=== PATIENT | male | born 1975 | race Caucasian/White ===

== ENCOUNTER 2021-09-10 14:26 | Emergency (ER) | payer SELFPAY ==
[~2021-09-10] VITALS: Ht 165 cm; Wt 95.0 kg
--- NOTE | 2021-09-10 14:35 | ED Abdominal Pain ---
General Stated Complaint: LRQ PAIN; N/V/; FEVER History of Present Illness Date Seen by Provider: Sep 10, 2021 Time Seen by Provider: 14:30 Initial Comments 45-year-old male presents with right flank pain and time with diffuse right abdominal pain. Started this morning. He does have some dark urine. Reports when he ate this morning he vomited everything up. Reports that the urine got dark this morning. He denies any fever. No diarrhea or constipation. No dysuria. Allergies and Home Medications Allergies Coded Allergies: No Known Drug Allergies (Unverified , 09/10/21) Patient Home Medication List Home Medication List Reviewed: Yes Review of Systems Review of Systems Constitutional: No chills, No fever Respiratory: No Symptoms Reported Cardiovascular: No Symptoms Reported Gastrointestinal: See HPI, Abdominal Pain; Denies Constipated, Denies Diarrhea; Nausea, Vomiting Genitourinary: See HPI, Flank Pain Musculoskeletal: no symptoms reported Skin: no symptoms reported Psychiatric/Neurological: No Symptoms Reported Endocrine: No Symptoms Reported Hematologic/Lymphatic: No Symptoms Reported Physical Exam Vital Signs Vital Signs - First Documented 09/10/21 14:50 Temp 36.1 Pulse 78 Resp 16 B/P (MAP) 199/104 (135) Pulse Ox 98 O2 Delivery Room Air Capillary Refill : Height/Weight/BMI Height: '" Weight: lbs. oz. kg; BMI Method: General Appearance: WD/WN, no apparent distress Neck: supple, normal inspection Respiratory: lungs clear, normal breath sounds Cardiovascular: normal peripheral pulses, regular rate, rhythm Gastrointestinal: soft, tenderness (Mild tenderness right mid and right lower quadrant) Back: CVA tenderness (R) Neurologic/Psychiatric: alert, normal mood/affect, oriented x 3 Skin: normal color, warm/dry Progress/Results/Core Measures Results/Orders Lab Results Laboratory Tests Test 09/10/21 14:34 Range/Units White Blood Count 6.7 4.3-11.0 10^3/uL Red Blood Count 4.88 4.30-5.52 10^6/uL Hemoglobin 14.8 13.3-17.7 g/dL Hematocrit 43 40-54 % Mean Corpuscular Volume 87 80-99 fL Mean Corpuscular Hemoglobin 30 25-34 pg Mean Corpuscular Hemoglobin Concent 35 32-36 g/dL Red Cell Distribution Width 13.4 10.0-14.5 % Platelet Count 237 130-400 10^3/uL Mean Platelet Volume 11.1 9.0-12.2 fL Neutrophils (%) (Auto) 63 42-75 % Lymphocytes (%) (Auto) 28 12-44 % Monocytes (%) (Auto) 7 0-12 % Eosinophils (%) (Auto) 2 0-10 % Basophils (%) (Auto) 0 0-10 % Neutrophils # (Auto) 4.2 1.8-7.8 X 10^3 Lymphocytes # (Auto) 1.9 1.0-4.0 X 10^3 Monocytes # (Auto) 0.5 0.0-1.0 X 10^3 Eosinophils # (Auto) 0.1 0.0-0.3 10^3/uL Basophils # (Auto) 0.0 0.0-0.1 10^3/uL Urine Color BROWN H Urine Clarity CLOUDY Urine pH 5.5 5-9 Urine Specific [place] >=1.030 1.016-1.022 Urine Protein 2+ H NEGATIVE Urine Glucose (UA) NEGATIVE NEGATIVE Urine Ketones TRACE H NEGATIVE Urine Nitrite NEGATIVE NEGATIVE Urine Bilirubin 1+ H NEGATIVE Urine Urobilinogen 0.2 < = 1.0 MG/DL Urine Leukocyte Esterase NEGATIVE NEGATIVE Urine RBC (Auto) 3+ H NEGATIVE Urine RBC >100 H /HPF Urine WBC RARE /HPF Urine Squamous Epithelial Cells NONE /HPF Urine Crystals NONE /LPF Urine Bacteria TRACE /HPF Urine Casts NONE /LPF Urine Mucus SMALL H /LPF Urine Culture Indicated NO Sodium Level 138 135-145 MMOL/L Potassium Level 3.8 3.6-5.0 MMOL/L Chloride Level 103 98-107 MMOL/L Carbon Dioxide Level 25 21-32 MMOL/L Anion Gap 10 5-14 MMOL/L Blood Urea Nitrogen 12 7-18 MG/DL Creatinine 0.92 0.60-1.30 MG/DL Estimat Glomerular Filtration Rate 104 BUN/Creatinine Ratio 13 Glucose Level 157 H 70-105 MG/DL Calcium Level 9.2 8.5-10.1 MG/DL Corrected Calcium 8.5-10.1 MG/DL Total Bilirubin 0.5 0.1-1.0 MG/DL Aspartate Amino Transf (AST/SGOT) 27 5-34 U/L Alanine Aminotransferase (ALT/SGPT) 35 0-55 U/L Alkaline Phosphatase 56 40-136 U/L C-Reactive Protein < 0.30 <0.50 MG/DL Total Protein 7.1 6.4-8.2 GM/DL Albumin 5.0 H 3.2-4.5 GM/DL My Orders Orders - JOSE SINVOR L DO Cbc With Automated Diff (09/10/21 14:37) Comprehensive Metabolic Panel (09/10/21 14:37) Ua Culture If Indicated (09/10/21 14:37) Crp Fs (09/10/21 14:37) Abdomen (Kub) 1 View (09/10/21 14:37) Ketorolac Injection (Toradol Injection) (09/10/21 14:37) Ondansetron Injection (Zofran Injectio (09/10/21 14:45) Ns Iv 1000 Ml (Sodium Chloride 0.9%) (09/10/21 14:37) Ct Abdomen/Pelvis Wo (09/10/21 15:13) Medications Given in ED Current Medications Medications Dose Ordered Sig/Senthil Route Start Time Stop Time Status Last Admin Dose Admin Ondansetron HCl 4 mg ONCE ONCE IVP 09/10/21 14:45 09/10/21 14:46 DC 09/10/21 14:45 4 MG Vital Signs/I&O 09/10/21 14:50 Temp 36.1 Pulse 78 Resp 16 B/P (MAP) 199/104 (135) Pulse Ox 98 O2 Delivery Room Air Diagnostic Imaging Diagonstic Imaging: CT Plain Films/CT/US/NM/MRI: abdomen, pelvis Comments Date of Exam:09/10/21 CT ABDOMEN/PELVIS WO PROCEDURE: CT abdomen and pelvis without contrast. TECHNIQUE: Multiple contiguous axial images were obtained through the abdomen and pelvis without the use of intravenous contrast. Auto Exposure Controls were utilized during the CT exam to meet ALARA standards for radiation dose reduction. INDICATION: Abdominal pain and hematuria. FINDINGS: Unenhanced images of liver and spleen reveal no focal abnormalities. Gallbladder is surgically absent. There is no evidence of pancreatic or adrenal gland abnormality. There are several nonobstructing stones centrally in the left kidney. There are additional circumscribed low-density foci in the right kidney which likely represent cysts. There is mild dilatation of right renal collecting system and ureter to the level of an approximately 0.4 cm calculus in the mid ureteric level. There is mild edema and/or inflammation surrounding the right ureter as well. Bladder is unremarkable. There is no evidence of free fluid in the abdomen or pelvis. There is localized L5-S1 degenerative disc disease. IMPRESSION: At least partially obstructing 0.4 cm calculus at the mid right ureter. Additional nonobstructing calculi are seen in the left kidney and bilateral renal cysts are present. Reviewed: Reviewed by Me, Reviewed/Discussed Departure Impression Primary Impression: Kidney stone on right side Disposition: HOME, SELF-CARE Condition: Stable Departure-Patient Inst. Referrals: NO,LOCAL PHYSICIAN (PCP/Family) Primary Care Physician Patient Instructions: Kidney Stone, Adult ED, Kidney Stone Diet Add. Discharge Instructions: Follow-up with your primary care provider next Tuesday or Tuesday for recheck of your symptoms Return to the ER if symptoms worsen Scripts Ondansetron (Ondansetron Odt) 4 Mg Tab.rapdis 4 MG PO Q6H PRN for NAUSEA/VOMITING, #20 TAB 0 Refills Prov: PABLO SIN DO 09/10/21 Tamsulosin HCl (Flomax) 0.4 Mg Cap 0.4 MG PO DAILY for 14 Days, #14 CAP Prov: PABLO SIN DO 09/10/21 PABLO SIN DO Sep 10, 2021 14:35
[2021-09-10] MEDS ORDERED: NS IV 1000 ML 1,000 ML IV STA (14:37)
[2021-09-10] MEDS ORDERED: KETOROLAC 30 MG/ML VIAL IVP STA (14:37)
[2021-09-10] MEDS ORDERED: ONDANSETRON 4 MG/2 ML (SDV) Z0FRAN IVP ONE (14:45)
[2021-09-10 14:51] LABS: HEMATOCRIT 43 % (40-54); HEMOGLOBIN 14.8 g/dL (13.3-17.7); MEAN CORPUSCULAR HEMOGLOBIN 30 pg (25-34); MEAN CORPUSCULAR HGB CONC 35 g/dL (32-36); MEAN CORPUSCULAR VOLUME 87 fL (80-99); PLATELET COUNT 237 10^3/uL (130-400); WHITE BLOOD COUNT 6.7 10^3/uL (4.3-11.0)
[2021-09-10 14:52] LABS: BASOPHILS % (AUTO) 0 % (0-10); EOSINOPHILS % (AUTO) 2 % (0-10); LYMPHOCYTES # (AUTO) 1.9 X 10^3 (1.0-4.0); LYMPHOCYTES % (AUTO) 28 % (12-44); MEAN PLATELET VOLUME 11.1 fL (9.0-12.2); MONOCYTES # (AUTO) 0.5 X 10^3 (0.0-1.0); MONOCYTES % (AUTO) 7 % (0-12); NEUTROPHILS # (AUTO) 4.2 X 10^3 (1.8-7.8); NEUTROPHILS % (AUTO) 63 % (42-75)
[2021-09-10 14:53] LABS: EOSINOPHILS # (AUTO) 0.1 10^3/uL (0.0-0.3)
--- NOTE | 2021-09-10 14:53 | Diagnostic Imaging Report ---
INDICATION: Right-sided abdominal pain and right flank pain. TIME OF EXAM: 2:46 PM. COMPARISON: No prior studies are available for comparison. FINDINGS: There are surgical clips in the gallbladder fossa. The bowel gas pattern is nonobstructed. No pathologic calcifications are identified. IMPRESSION: No acute abnormality is detected. Dictated by: Dictated on workstation # [id number]
[2021-09-10 15:01] LABS: CLARITY,URINE CLOUDY; COLOR,URINE BROWN; GLUCOSE, URINE (UA) NEGATIVE (NEGATIVE); KETONES,URINE TRACE (NEGATIVE); LEUKOCYTE ESTERASE ,URINE NEGATIVE (NEGATIVE); NITRITE,URINE NEGATIVE (NEGATIVE); PH,URINE 5.5 (5-9); PROTEIN,URINE 2+ (NEGATIVE)
[2021-09-10 15:05] LABS: BACTERIA,URINE TRACE /HPF; BILIRUBIN,URINE 1+ (NEGATIVE); RBC,URINE >100 /HPF; WBC,URINE RARE /HPF
[2021-09-10 15:06] LABS: ALANINE AMINOTRANSFERASE 35 U/L (0-55); ALKALINE PHOSPHATASE 56 U/L (40-136); BILIRUBIN,TOTAL 0.5 MG/DL (0.1-1.0); BUN/CREATININE RATIO 13; CALCIUM 9.2 MG/DL (8.5-10.1); CARBON DIOXIDE 25 MMOL/L (21-32); CHLORIDE 103 MMOL/L (98-107); CREATININE SERUM 0.92 MG/DL (0.60-1.30); GFR ESTIMATED 104; GLUCOSE 157 MG/DL (70-105); POTASSIUM 3.8 MMOL/L (3.6-5.0); SODIUM 138 MMOL/L (135-145); TOTAL PROTEIN 7.1 GM/DL (6.4-8.2)
--- NOTE | 2021-09-10 15:45 | Diagnostic Imaging Report ---
PROCEDURE: CT abdomen and pelvis without contrast. TECHNIQUE: Multiple contiguous axial images were obtained through the abdomen and pelvis without the use of intravenous contrast. Auto Exposure Controls were utilized during the CT exam to meet ALARA standards for radiation dose reduction. INDICATION: Abdominal pain and hematuria. FINDINGS: Unenhanced images of liver and spleen reveal no focal abnormalities. Gallbladder is surgically absent. There is no evidence of pancreatic or adrenal gland abnormality. There are several nonobstructing stones centrally in the left kidney. There are additional circumscribed low-density foci in the right kidney which likely represent cysts. There is mild dilatation of right renal collecting system and ureter to the level of an approximately 0.4 cm calculus in the mid ureteric level. There is mild edema and/or inflammation surrounding the right ureter as well. Bladder is unremarkable. There is no evidence of free fluid in the abdomen or pelvis. There is localized L5-S1 degenerative disc disease. IMPRESSION: At least partially obstructing 0.4 cm calculus at the mid right ureter. Additional nonobstructing calculi are seen in the left kidney and bilateral renal cysts are present. Dictated by: Dictated on workstation # [id number]
[2021-09-10] MEDS ORDERED: ONDA4TAB11 PO (16:05)
[2021-09-10] MEDS ORDERED: TMSL.4C PO (16:05)
[2021-09-10 16:29] VITALS: BP 139/80
== END 2021-09-10 16:10 | disposition home or self-care (01) ==
LOC: ER FS 14:28
DX: N20.0 Calculus of kidney (principal)
CPT/HCPCS: 36415; 74018; 74176; 80053; 81000; 85025; 86141